=== PATIENT | female | born 1980 | race African-American/Black ===

== ENCOUNTER 2016-12-09 08:42 | Emergency (ER) | payer MEDICAID ==
[~2016-12-09] VITALS: Ht 162.6 cm; Wt 66.2 kg
[2016-12-09 09:07] VITALS: BP 109/71
[2016-12-09] MEDS ORDERED: cefTRIAXone SODIUM 250 MG VL IM ONE (10:00)
== END 2016-12-09 10:33 | disposition home or self-care (01) ==
LOC: ER 08:42
DX: N39.0 Urinary tract infection, site not specified (principal); Z20.2 Contact with and (suspected) exposure to infections with a predominantly sexual mode of transmission
CPT/HCPCS: 81025; 96372; 99283; J0696

== ENCOUNTER 2017-01-17 20:42 | Emergency (ER) | payer MEDICAID ==
[~2017-01-17] VITALS: Ht 160 cm; Wt 54.4 kg
[2017-01-17 21:00] VITALS: BP 115/73
[2017-01-17] MEDS ORDERED: CYCLOBENZAPRINE HCL 10 MG TAB PO ONE (23:15)
[2017-01-17] MEDS ORDERED: IBUPROFEN 600 MG TAB PO ONE (23:15)
== END 2017-01-17 23:34 | disposition home or self-care (01) ==
LOC: ER 20:45
DX: S70.11XA Contusion of right thigh, initial encounter (principal); F17.210 Nicotine dependence, cigarettes, uncomplicated; F12.10 Cannabis abuse, uncomplicated; W23.0XXA Caught, crushed, jammed, or pinched between moving objects, initial encounter; Y93.89 Activity, other specified; Y99.8 Other external cause status; Y92.89 Other specified places as the place of occurrence of the external cause

== ENCOUNTER 2018-06-25 23:44 | Emergency (ER) | payer MEDICAID, OTHER ==
[~2018-06-25] VITALS: Ht 162.6 cm; Wt 70.8 kg
[2018-06-26] MEDS ORDERED: HYDROcodone-ACET 5/325MG TAB PO ONE (04:15)
--- NOTE | 2018-06-26 04:30 | NUR ---
SPOKE WITH PATIENT WHO STATES THAT HER BOYFRIEND HAD JUST CALLED HER AND THREATENED HER THIS RN WELL SECURITY AND THE DITCHER OPERATOR WERE PRESENT WHEN THE OTHER GREEN PARTY CALLED AND THREATENED THIS PATIENT AND I HEARD HIM STATE: "CHYNA DON'T EVER CALL ME AGAIN WE ARE DONE IM GOING TO SENIOR CARE BECAUSE OF YOU IM DONE WITH YOU, YOU BETTER NOT SHOW UP AT COURT I WILL MAKE SURE YOU DON'T SHOW UP AND THAT IS ON MY MOMMA"
[2018-06-26 05:54] VITALS: BP 143/83
[2018-06-26] MEDS ORDERED: LIDOCAINE 1% HCL (LOCAL ANESTH.) INJ 20ML MDV ONE (11:30)
== END 2018-06-26 06:52 | disposition home or self-care (01) ==
LOC: ER 23:44
DX: S01.112A Laceration without foreign body of left eyelid and periocular area, initial encounter (principal); S16.1XXA Strain of muscle, fascia and tendon at neck level, initial encounter; F17.210 Nicotine dependence, cigarettes, uncomplicated; F12.10 Cannabis abuse, uncomplicated; Y08.89XA Assault by other specified means, initial encounter; Y93.89 Activity, other specified; Y99.8 Other external cause status; Y92.89 Other specified places as the place of occurrence of the external cause
CPT/HCPCS: 70450; 70486; 72125; 99284; J2001